=== PATIENT | male | born 1940 | race Caucasian/White ===

== ENCOUNTER 2018-02-15 14:24 | Emergency (ER) | payer OTHER, MEDICARE ==
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
[2018-02-15] MEDS ORDERED: KEFLEX500 M1 PO (19:40)
[2018-02-15 19:41] VITALS: BP 124/65
[2018-02-15] MEDS ORDERED: IBUPROFEN400 M1 PO (19:41)
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
== END 2018-02-15 19:41 ==
LOC: ERH 14:24
DX: S81.012A Laceration without foreign body, left knee, initial encounter (principal); V28.0XXA Motorcycle driver injured in noncollision transport accident in nontraffic accident, initial encounter; Y92.9 Unspecified place or not applicable
CPT/HCPCS: 73560-LT; 90471; 90714; J2001

== ENCOUNTER 2018-03-08 13:34 | Emergency (ER) | payer OTHER, MEDICARE ==
[~2018-03-08] VITALS: Ht 170.2 cm; Wt 72.6 kg
[~2018-03-08 13:34] MED LIST: IBUPROFEN400 M1 PO; KEFLEX500 M1 PO
[2018-03-08 13:45] VITALS: BP 113/70
--- NOTE | 2018-03-08 13:53 | ED ANIMAL BITE/WOUND CHECK ---
History of Present Illness General Chief Complaint: Suture Removal/Wound Recheck Stated Complaint: SUTURE REMOVAL Source: patient, old records Exam Limitations: no limitations Vital Signs & Intake/Output Vital Signs & Intake/Output Vital Signs Date Time Temp Pulse Resp B/P B/P Pulse O2 O2 Flow FiO2 Mean Ox Delivery Rate 03/08 1345 98.9 82 20 113/70 98 Room Air Allergies Coded Allergies: NO KNOWN ALLERGIES (02/15/18) Reconcile Medications Cephalexin (Keflex) 500 MG CAPSULE 1 CAP PO BID trauma Ibuprofen 400 MG TABLET 1 TAB PO TID PRN PAIN Triage Note: PT TO ED FOR SUTURE REMOVAL TO LEFT KNEE. PLACED HERE FEBRUARY 15. Triage Nurses Notes Reviewed? yes HPI: Patient presents for suture removal from his left knee. The sutures in place for 2 weeks. Patient has no complaints. Past History Travel History Traveled to [place] past 21 day No Medical History Any Pertinent Medical History? none Neurological: NONE EENT: NONE Cardiovascular: NONE Respiratory: NONE Gastrointestinal: NONE Hepatic: NONE Renal: NONE Musculoskeletal: NONE Psychiatric: NONE Endocrine: NONE Tetanus Vaccine: 02/15/18 Surgical History Surgical History: non-contributory Psychosocial History What is your primary language [place] Tobacco Use: Quit >30 days ago ETOH Use: denies use Illicit Drug Use: denies illicit drug use Family History Hx Contributory? No Review of Systems Review of Systems Constitutional: Reports: no symptoms. Respiratory: Reports: no symptoms. Cardiovascular: Reports: no symptoms. Musculoskeletal: Reports: see HPI. Neurological/Psychological: Reports: no symptoms. Immunologic/Allergic: Reports: no symptoms. Physical Exam Physical Exam General Appearance: well developed/nourished, alert, awake Eyes: Bilateral: PERRL, EOMI. Respiratory: normal breath sounds, chest non-tender, no respiratory distress, lungs clear Cardiovascular: regular rate/rhythm, normal peripheral pulses Extremities: sUTURES ARE READY FOR REMOVAL Neurologic/Psych: no motor/sensory deficits, awake, alert, oriented x 3, normal gait, normal mood/affect Progress Differential Diagnosis: SUTURE REMOVAL Plan of Care: Suture removal Departure Departure Disposition: HOME OR SELF CARE Condition: Stable Clinical Impression Primary Impression: Visit for suture removal Referrals: Pedro Barragan MD (PCP/Family) Additional Instructions: RETURN FOR ANY CONCERNS Departure Forms: Customer Survey General Discharge Information
== END 2018-03-08 14:04 ==
LOC: ERH 13:34
DX: Z48.02 Encounter for removal of sutures (principal)